=== PATIENT | female | born 1990 | race African-American/Black ===

== ENCOUNTER 2020-12-24 12:41 | Emergency (ER) | payer OTHER, SELFPAY ==
--- NOTE | ~2020-12-24 | XR_ITS ---
EXAMINATION: XR LUMBOSACRAL SPINE CLINICAL INFORMATION: Trauma COMPARISON: None TECHNIQUE: Three views of the lumbosacral spine. FINDINGS: 5 nonrib-bearing lumbar vertebral bodies are visualized. Normal alignment. Vertebral body heights are well-maintained. Mildly decreased L5/S1 disc space height. Other disc space heights are well-maintained. XR/XR lumbar spine 2-3V IMPRESSION: Mild degenerative changes of the lower lumbar spine.
[2020-12-24 12:47] VITALS: BP 113/62; PULSE 64; RESP 18; TEMP 36.8; O2SAT 100; BMI 27.3
[2020-12-24 13:22] VITALS: BP 111/51; PULSE 67; RESP 18; TEMP 36.8; O2SAT 100
--- NOTE | 2020-12-24 13:32 | ED_ITS ---
HPI - Psych General Chief Complaint: Psychiatric Symptoms Stated Complaint: back inj Time Seen by Provider: 12/24/20 13:15 Source: patient Mode of arrival: ambulatory Limitations: no limitations History of Present Illness HPI Narrative: c/o depression, SI thought also c/o lower back pain X 2 weeks,she states that 2 weeks ago she was sittin and hyperestended the lower back and 3 Days ago fiorella felt back pain again complaint: suicidal ideation and feels depressed Onset (ago): day(s) Duration: constant Relieving factors: none Exacerbating factors: none Associated symptoms: denies other symptoms Related Data Allergies Allergy/AdvReac Type Severity Reaction Status Date / Time Penicillins Allergy Hives Verified 12/24/20 13:28 tree nut Allergy Hives Verified 12/24/20 13:28 Review of Systems Review of Systems: Yes all other systems are reviewed and are negative Constitutional: Constitutional: Reports no additional constitutional complaints Eyes: Eyes: Reports no additional eye complaints ENT: Reports system reviewed and no additional complaints, except as documented Cardiovascular: Cardiovascular: Reports no additional cardiovascular complaints Respiratory: Respiratory: Reports no additional respiratory complaints and Reports no additional respiratory complaints Psychiatric: Psychiatric: Reports as per HPI PMFSH Past Medical History [facility] Narrative: Depression she sees a therapist Social History Social History Advance Directives: No Advance Directives Information Provided: No Physical Exam Vital Signs: Vital Signs: Last Vital Signs Temp 98.3 F 12/24/20 13:22 Pulse 67 12/24/20 13:22 Resp 18 12/24/20 13:22 BP 111/51 L 12/24/20 13:22 Pulse Ox 100 12/24/20 13:22 Body Mass Index 27.3 Const: General: cooperative, comfortable, no acute distress, well developed, alert and awake Nutritional Appearance: well nourished Limitations: no limitations HENMT: Head: Yes normal to inspection Face and sinus: Yes normal facial exam Mouth: Normal oral and palatal mucosa present Throat: Yes posterior oropharynx normal Neck: Neck: Yes normal visual inspection, Yes full ROM, Yes no lymphadenopathy and Yes no meningeal signs Chest: Chest palpation & inspection: normal inspection of the chest Resp: Effort & Inspection: normal respiratory effort Auscultation: clear to auscultation bilaterally Cardio: Jugular venous distension: no JVD Palpation: normal PMI Rate: regular rate Rhythm: regular rhythm GI: Inspection: Yes normal to inspection Palpation (GI): Soft to palpation, not firm, nontender and no guarding Back/Spine/Pelvis: Other: minimal tenderness lower lumbar spine,no strenght Neuro: General: no meningeal signs Course Reevaluation(s) Reevaluation #1: Pt was seen by crisis she was cleared for d/c appropriate referral were given to the pt by Crisis MDM - Psych Lab Data Labs: Lab Results 12/24/20 12/24/20 12/24/20 Range/Units 13:49 13:49 13:49 Beta HCG, Quant < 2 mIU/mL Urine Color YELLOW Urine Appearance HAZY Urine pH 6.0 (5.0-8.0) Ur Specific [place] >= 1.030 H (1.005-1.025) Urine Protein NEG (NEG-TRACE) MG/DL Urine Glucose (UA) NEG (NEG) MG/DL Urine Ketones NEG (NEG) MG/DL Urine Blood TRACE (NEG) Urine Nitrite NEG (NEG) Ur Leukocyte Esterase NEG (NEG) Urine RBC 0-2 (0) /HPF Urine WBC 0-2 (0-4) /HPF Ur Squamous Epith Cells 1+ /LPF Urine Bacteria TRACE /LPF Urine Opiates Screen (Not Detect) Urine Fentanyl Screen (Not Detect) Ur Barbiturates Screen (Not Detect) Ur Phencyclidine Scrn (Not Detect) Ur Amphetamines Screen (Not Detect) U Benzodiazepines Scrn (Not Detect) Urine Cocaine Screen (Not Detect) U Marijuana (THC) Screen (Not Detect) COVID-19 (ABEBA) Negative (Negative) COVID-19 Clin Com See Note 12/24/20 Range/Units 13:49 Beta HCG, Quant mIU/mL Urine Color Urine Appearance Urine pH (5.0-8.0) Ur Specific [place] (1.005-1.025) Urine Protein (NEG-TRACE) MG/DL Urine Glucose (UA) (NEG) MG/DL Urine Ketones (NEG) MG/DL Urine Blood (NEG) Urine Nitrite (NEG) Ur Leukocyte Esterase (NEG) Urine RBC (0) /HPF Urine WBC (0-4) /HPF Ur Squamous Epith Cells /LPF Urine Bacteria /LPF Urine Opiates Screen Not Detected (Not Detect) Urine Fentanyl Screen Not Detected (Not Detect) Ur Barbiturates Screen Not Detected (Not Detect) Ur Phencyclidine Scrn Not Detected (Not Detect) Ur Amphetamines Screen Not Detected (Not Detect) U Benzodiazepines Scrn Not Detected (Not Detect) Urine Cocaine Screen Not Detected (Not Detect) U Marijuana (THC) Screen POSITIVE H (Not Detect) COVID-19 (ABEBA) (Negative) COVID-19 Clin Com Imaging Data LS SPINE x-ray: Radiologist's impression: cc: John Harris MD~ EXAMINATION: XR LUMBOSACRAL SPINE CLINICAL INFORMATION: Trauma COMPARISON: None TECHNIQUE: Three views of the lumbosacral spine. FINDINGS: 5 nonrib-bearing lumbar vertebral bodies are visualized. Normal alignment. Vertebral body heights are well-maintained. Mildly decreased L5/S1 disc space height. Other disc space heights are well-maintained. XR/XR lumbar spine 2-3V IMPRESSION: Mild degenerative changes of the lower lumbar spine. Dictated By: MARY GIRON MD Signed By: <Electronically signed by MARY GIRON MD in OV> 12/24/20 1514 DD/ 1427 TD/TT:? Corrections Caseworker: PD Discharge Plan Discharge Clinical Impression: Depression, Lower back pain
[2020-12-24] MEDS: NaPROXEN 500 MG TABLET PO (13:45)
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
[2020-12-24 14:02] LABS: Appearance Urine HAZY; Color Urine YELLOW; Glucose Urine UA NEG (NEG); Leukocyte Esterase Urine NEG (NEG); Nitrite Urine NEG (NEG); Specific Gravity - Urine >= 1.030 (1.005-1.025); UACC Culture Trigger NO; Urine Blood TRACE (NEG); Urine Ketones NEG (NEG); Urine Protein NEG (NEG-TRACE)
--- NOTE | 2020-12-24 14:13 | PC.NURSE ---
pt will be seen by CARE team
[2020-12-24 14:15] LABS: COVID-19 Test Negative (Negative)
[2020-12-24 14:21] LABS: Amphetamine Screen Urine Not Detected (Not Detect); Barbiturates, Urine Not Detected (Not Detect); Benzodiazepines Screen Urine Not Detected (Not Detect); Cannabinoid Screen Urine POSITIVE (Not Detect); Cocaine Screen Urine Not Detected (Not Detect); Fentanyl, urine Not Detected (Not Detect); HCG Quantitative < 2 mIU/mL; Opiate Screen Urine Not Detected (Not Detect); Phencyclidine Screen Urine Not Detected (Not Detect)
[2020-12-24 14:35] LABS: Bacteria Urine TRACE /LPF; RBC Urine 0-2 /HPF (0); Squamous Epithelial Cell Urine 1+ /LPF; WBC Urine 0-2 /HPF (0-4)
[2020-12-24 16:21] VITALS: BP 114/57; PULSE 71; RESP 20; TEMP 36.7; O2SAT 100
== END 2020-12-24 16:18 | disposition home or self-care (01) ==
PROVIDERS: Emergency Provider Emergency Medicine; PCP Physician Assistant
DX: F32.A Depression, unspecified (principal); M54.50 Low back pain, unspecified; Z20.822 Contact with and (suspected) exposure to COVID-19
CPT/HCPCS: 36415; 72100; 80307; 81001; 84702; 87635; 99284